=== PATIENT | female | born 1975 | race Caucasian/White ===

== ENCOUNTER 2018-12-26 13:39 | Emergency (ER) | payer SELFPAY ==
[2018-12-26 13:42] VITALS: BP 108/73; PULSE 109; RESP 18; TEMP 36.9; O2SAT 98
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
--- NOTE | 2018-12-26 16:02 | DI.RAD_ITS ---
SYMPTOM/DIAGNOSIS: FELL, TRAUMA, PAIN LEFT ELBOW: No fracture or dislocation is seen. The positioning is somewhat suboptimal. There are two smoothly marginated bony densities adjacent to the lateral epicondyle which appear chronic. IMPRESSION: No acute abnormality. LEFT FOREARM: No fracture or dislocation is seen. IMPRESSION: Negative forearm. LEFT WRIST: No fracture or dislocation is seen. IMPRESSION: Negative left wrist.
--- NOTE | 2018-12-26 17:00 | DI.VRAD_ITS ---
EXAM: XR Left Wrist EXAM DATE/TIME: 12/26/2018 3:10 PM CLINICAL HISTORY: 43 years old, female; Other: Fall/trauma TECHNIQUE: Imaging protocol: XR Left wrist. Views: 3 or more views. COMPARISON: No relevant prior studies available. FINDINGS: Bones/joints: Normal. There is no evidence of acute fracture.There is no evidence of malalignment or dislocation. Soft tissues: Normal. IMPRESSION: No acute findings. Dictated and Authenticated by: Baldo Major MD. Ordering:LI German MD
--- NOTE | 2018-12-26 17:01 | DI.VRAD_ITS ---
EXAM: XR Left Elbow EXAM DATE/TIME: 12/26/2018 3:10 PM CLINICAL HISTORY: 43 years old, female; Other: Fall/trauma TECHNIQUE: Imaging protocol: XR Left elbow. Views: 3 or more views. COMPARISON: No relevant prior studies available. FINDINGS: Bones/joints: Well-corticated ossific fragments adjacent to the lateral aspect of the elbow and the radial head consistent with avulsion fractures of unknown age. There is no evidence of acute fracture. There is no evidence of malalignment or dislocation. Soft tissues: Normal. IMPRESSION: 1. Well-corticated ossific fragments adjacent to the lateral aspect of the elbow and the radial head consistent with avulsion fractures of unknown age. 2. There is no evidence of acute fracture. Dictated and Authenticated by: Baldo Major MD. Ordering:LI German MD
--- NOTE | 2018-12-26 17:03 | DI.VRAD_ITS ---
EXAM: XR Left Forearm EXAM DATE/TIME: 12/26/2018 4:01 PM CLINICAL HISTORY: 43 years old, female; Other: Fall/trauma TECHNIQUE: Imaging protocol: XR Left forearm. Views: 2 views. COMPARISON: No relevant prior studies available. FINDINGS: Bones/joints: There is no evidence of acute fracture. There is no evidence of malalignment or dislocation. Soft tissues: Normal. IMPRESSION: 1. There is no evidence of acute fracture. 2. There is no evidence of malalignment or dislocation. Dictated and Authenticated by: Baldo Major MD. Ordering:LI German MD
[2018-12-26] MEDS: Ibuprofen 600 MG TAB PO (17:31)
[2018-12-26] MEDS: Acetaminophen 500 MG TAB 1000 MG PO (17:31)
== END 2018-12-26 17:40 | disposition home or self-care (01) ==
PROVIDERS: Emergency Provider Nurse Practitioner Family; PCP Radiology Radiation Oncology
DX: S63.502A Unspecified sprain of left wrist, initial encounter (principal); S80.212A Abrasion, left knee, initial encounter; S50.02XA Contusion of left elbow, initial encounter; V17.0XXA Pedal cycle driver injured in collision with fixed or stationary object in nontraffic accident, initial encounter
CPT/HCPCS: 99284; 73080; 73090; 73110; 99282; L3650; L3807